=== PATIENT | female | born 1960 | race Caucasian/White ===

== ENCOUNTER 2018-11-22 04:39 | Emergency (ER) | payer BC ==
--- NOTE | 2018-11-22 04:51 | ER Report ---
History and Physical Time Seen By MD: 04:47 (NAEEM CASTANEDA MD) Time Seen By MD: 07:00 (AMBREEN LIU DO) HPI/ROS CHIEF COMPLAINT: fall, head injury, bruised hand HISTORY OF PRESENT ILLNESS: This is a 58 year old female. She was getting up this morning to go to the bathroom. [place] nauseated and dizzy. Fell and hit head, right forehead over the eyebrow. Lost consciousness. Uncertain if loss of consciousness was first or due to impact. Awoke after unknown time, but based on small amount of blood on floor, was likely brief. Sat on the toilet and called for help. Pain over area of laceration and pain in right hand with bruising. Normal sensation and can move it. No neck pain. No headache other than over the lacerated area. Very anxious and upset about the event and difficult time talking about it. No vision changes. No chest pain at this time or palpitations. No shortness of breath. (NAEEM CASTANEDA MD) HPI/ROS Please see Dr. Castaneda note (AMBREEN LIU DO) Allergies: Coded Allergies: Sulfa (Sulfonamide Antibiotics) (Verified Allergy, Severe, HIVES, 04/24/15) sulfamethoxazole (Verified Allergy, Severe, SWELLING OF THROAT, HIVES, 04/24/15) trimethoprim (Verified Allergy, Severe, SWELLING OF THROAT, HIVES, 04/24/15) Home Meds Active Scripts Nitrofurantoin Macrocrystal (NITROFURANTOIN) 100 Mg Capsule, 100 MG PO BID for 5 Days, #10 CAPSULE Prov:AMBREEN LIU DO 11/22/18 Reviewed Nurses Notes: Yes (NAEEM CASTANEDA MD) Hx Smoking: Yes Smoking Status: Former Smoker Hx Substance Use Disorder: No (NAEEM CASTANEDA MD) Constitutional Vital Sign - Last 24 Hours 11/22/18 11/22/18 11/22/18 04:45 06:00 08:02 Temp 98.0 Pulse 90 78 76 Resp 16 16 B/P (MAP) 91/55 108/77 (87) Pulse Ox 93 93 O2 Delivery Room Air Room Air (AMBREEN LIU DO) Physical Exam General Appearance: The patient is alert. Very anxious and having acute distress. Non-toxic in appearance. Eyes: Pupils are equal, round. Reactive to light. No pallor, injection or icterus. Extraocular movements are intact. Brief extinguishing horizontal normal nystagmus. ENT: Mucous membranes are moist. Normal oral mucosa. Posterior oropharynx is normal. Neck: Supple and non tender. Respiratory: Lungs are clear to auscultation. Cardiovascular: Regular rate and rhythm. No murmurs, gallops or rubs. Normal capillary refill. Gastrointestinal: Abdomen is soft and non tender. Nondistended. Normal active bowel sounds. No CVA tenderness. Neurological: Alert and oriented x3. Cranial nerves II through XII show no acute deficits on my exam. No focal neurologic deficits in the extremities. Skin: Warm and dry. No rashes. Bruising on right hand over dorsal surface over the 2-5 metacarpals. Laceration, stellate, above right eyebrow, deep. Musculoskeletal: Extremities are nontender other than right hand. No tenderness in palpation of the cervical, thoracic spine. DIFFERENTIAL DIAGNOSIS: After history and physical exam, differential diagnosis was considered for syncope including but not limited to vasovagal syncope, arrhythmia, dehydration, and blood loss. Laceration on the right forehead over the eyebrow that needs to be repaired. Also injury to the right hand which will need imaging (NAEEM CASTANEDA MD) Physical Exam Please see Dr. Castaneda note (AMBREEN LIU DO) Medical Decision Making Data Points Result Diagram: 11/22/18 0544 11/22/18 0544 Laboratory Hematology Test 11/22/18 05:44 White Blood Count 14.0 k/uL (4.5-11.0) H Red Blood Count 4.24 M/uL (4.17-5.56) Hemoglobin 14.1 g/dL (12.0-16.0) Hematocrit 41.3 % (34.0-47.0) Mean Corpuscular Volume 97.3 fL (80.0-96.0) H Mean Corpuscular Hemoglobin 33.3 pg (26.0-33.0) H Mean Corpuscular Hemoglobin Concent 34.2 g/dL (32.0-36.0) Red Cell Distribution Width 13.0 % (11.5-14.5) Platelet Count 288 K/uL (150-450) Mean Platelet Volume 8.1 fL (7.2-11.1) Neutrophils (%) (Auto) 84.1 % (39.4-72.5) H Lymphocytes (%) (Auto) 6.0 % (17.6-49.6) L Monocytes (%) (Auto) 7.3 % (4.1-12.4) Eosinophils (%) (Auto) 2.4 % (0.4-6.7) Basophils (%) (Auto) 0.2 % (0.3-1.4) L Nucleated RBC Relative Count (auto) 0.0 /100WBC Neutrophils # (Auto) 11.8 K/uL (2.0-7.4) H Lymphocytes # (Auto) 0.8 K/uL (1.3-3.6) L Monocytes # (Auto) 1.0 K/uL (0.3-1.0) Eosinophils # (Auto) 0.3 K/uL (0.0-0.5) Basophils # (Auto) 0.0 K/uL (0.0-0.1) Nucleated RBC Absolute Count (auto) 0.00 K/uL Chemistry Test 11/22/18 05:44 Sodium Level 137 mmol/L (137-145) Potassium Level 3.8 mmol/L (3.5-5.0) Chloride Level 104 mmol/L (98-107) Carbon Dioxide Level 26 mmol/L (22-31) Blood Urea Nitrogen 18 mg/dl (7-18) Creatinine 0.80 mg/dl (0.52-1.04) Glomerular Filtration Rate Calc > 60.0 Random Glucose 121 mg/dl (75-110) Calcium Level 8.7 mg/dl (8.4-10.2) Total Bilirubin 0.8 mg/dl (0.2-1.3) Aspartate Amino Transf (AST/SGOT) 64 U/L (0-35) Alanine Aminotransferase (ALT/SGPT) 60 U/L (0-56) Alkaline Phosphatase 58 U/L (0-126) Troponin I < 0.012 ng/ml Total Protein 6.4 g/dl (6.3-8.2) Albumin 3.7 g/dl (3.5-5.0) Coagulation Test 11/22/18 05:44 Prothrombin Time 12.4 seconds (12.0-14.4) Prothromb Time International Ratio 0.93 Activated Partial Thromboplast Time 30 seconds (23-35) Urinalysis Test 11/22/18 00:00 Urine Color Yellow Urine Clarity Clear Urine pH 7.0 pH (4.8-9.5) Urine Specific [place] 1.017 Urine Protein Negative mg/dL (NEGATIVE) Urine Glucose (UA) Negative mg/dL (NEGATIVE) Urine Ketones Negative mg/dL (NEGATIVE) Urine Blood Negative (NEGATIVE) Urine Nitrite Negative (NEGATIVE) Urine Bilirubin Negative (NEGATIVE) Urine Urobilinogen Negative mg/dL (0.2-1.9) Urine Leukocyte Esterase Trace (NEGATIVE) Urine RBC 2 /HPF (0-2/HPF) Urine WBC 7 /HPF (0-5/HPF) Urine Squamous Epithelial Cells Few /LPF (</=FEW) Urine Bacteria Negative /HPF (NONE-FEW) Urine Hyaline Casts Few /LPF (NONE-FEW) Urine Mucus None /HPF (NONE-FEW) (AMBREEN LIU DO) EKG/Imaging EKG Interpretation 12 lead EKG: Rhythm: Normal sinus rhythm, rate 67 [place]: normal QRS: Low-voltage ST segments: No ST elevation or depression or signs of ischemia noted (NAEEM CASTANEDA MD) ED Course/Re-evaluation Clinical Indication for ER IV: Hydration, IV Access Re-evaluation Procedure: Laceration Repair Verbal consent from patient after discussing repair options, risks and benefits. Wound cleaned extensively with Hibiclens and saline. Anesthesia: Local 1% with lidocaine. Location: Right forehead over the eyebrow. Length: Approximately total 5 cm in length. Character: Stellate and deep. Wound repair: 5 internal 4-0 Vicryl sutures followed by 7 interrupted 4-0 Ethilon sutures. The wound repair was intermediate and performed by myself. Wound care instructions discussed. Sutures need to be removed in 7 days. Tetanus up-to-date Cephalexin 500mg four times a day for 5 days. (NAEEM CASTANEDA MD) ED Course I assumed patient care from Dr. Castaneda at shift change. Imaging resulted was unremarkable. Patient was placed on antimicrobial therapy. Return precautions provided. PCP follow-up recommended. Decision to Disposition Date: Nov 22, 2018 Decision to Disposition Time: 07:44 (AMBREEN LIU DO) Depart Departure Latest Vital Signs Vital Signs Date Time Temp Pulse Resp B/P (MAP) Pulse Ox O2 Delivery O2 Flow Rate FiO2 11/22/18 08:02 76 16 108/77 (87) 93 Room Air 11/22/18 04:45 98.0 (AMBREEN LIU DO) Impression: Primary Impression: Fall Condition: Improved Disposition: HOME OR SELF-CARE Referrals: MARJORIE CEJA PA-C (PCP) New Scripts Nitrofurantoin Macrocrystal (NITROFURANTOIN) 100 Mg Capsule 100 MG PO BID for 5 Days, #10 CAPSULE Prov: AMBREEN LIU DO 11/22/18 Patient Instructions: Fall Prevention (ED), Urinary Tract Infection in Women (DC) Additional Instructions: Please drink plenty of water. Please take Macrobid 1 tablet twice daily for 5 days. Please return promptly if she develop worsening pain, fevers, dizziness, headaches. Please follow-up with your family care provider in the next 3-5 days for repeat evaluation care. NAEEM CASTANEDA MD Nov 22, 2018 04:51 AMBREEN LIU DO Nov 22, 2018 07:50
[2018-11-22 05:57] LABS: PLATELET COUNT, AUTOMATED 288 K/uL (150-450)
[2018-11-22 06:05] LABS: INR 0.93
--- NOTE | 2018-11-22 06:32 | EKG ---
FACILITY: [facility] - [place] PATIENT NAME: MICHELLE BRAND : [id number] MR: [id number] V: [id number] EXAM DATE: ORDERING PHYSICIAN: NAEEM BALL TECHNOLOGIST: KIMMY Haji Reason : Blood Pressure : / mmHG Vent. Rate : 067 BPM Atrial Rate : 067 BPM P-R Int : 152 ms QRS Dur : 074 ms QT Int : 412 ms P-R-T Axes : 062 035 066 degrees QTc Int : 435 ms Sinus rhythm Possible left atrial enlargement No acute appearing findings No previous ECGs available Confirmed by SHANIQUE MARTINEZ ([id number]) on 11/22/2018 6:32:42 AM Referred By: Confirmed By:SHANIQUE MARTINEZ
--- NOTE | 2018-11-22 07:11 | RADIOLOGY IMAGING REPORT ---
FACILITY: [facility] [place] PATIENT NAME: Lauren Boyd : 1960 MR: [id number] V: [id number] EXAM DATE: ORDERING PHYSICIAN: NAEEM BALL TECHNOLOGIST: Location: [facility] [place] Patient: Lauren Boyd : 1960 Visit/Account:[id number] Date of Sevice: 11/22/2018 AP CHEST 11/22/2018 5:36 AM. INDICATION: Syncope, fall. COMPARISON: None. FINDINGS: Lungs are well-expanded. There is no suspicious consolidation. No pleural effusion or pneumothorax. H eart size is normal. No displaced fracture. IMPRESSION: No acute abnormality. Report Dictated By: Lars Wood MD at 11/22/2018 7:02 AM Report E-Signed By: Lars Wood MD at 11/22/2018 7:04 AM WSN:[id number]
--- NOTE | 2018-11-22 07:12 | RADIOLOGY IMAGING REPORT ---
FACILITY: [facility] [place] PATIENT NAME: Lauren Boyd : 1960 MR: [id number] V: [id number] EXAM DATE: [id number] ORDERING PHYSICIAN: NAEEM BALL TECHNOLOGIST: Location: [facility] - [place] Patient: Lauren Boyd : 1960 Visit/Account:[id number] Date of Sevice: 11/22/2018 INDICATION: syncope, fall EXAM DATE: 11/22/2018 5:36 AM COMPARISON: None. FINDINGS: 3 views right hand. Mineralization is normal. No acute alignment abnormality or fracture. Soft tissue s are unremarkable. IMPRESSION: Normal right hand. At I Report Dictated By: Lars Wood MD at 11/22/2018 7:04 AM Report E-Signed By: Lars Wood MD at 11/22/2018 7:05 AM WSN:[id number]
--- NOTE | 2018-11-22 07:31 | RADIOLOGY IMAGING REPORT ---
FACILITY: [facility] PATIENT NAME: Lauren Boyd : 1960 MR: [id number] V: [id number] EXAM DATE: [id number] ORDERING PHYSICIAN: NAEEM BALL TECHNOLOGIST: Location: [facility] Patient: Lauren Boyd : 1960 Visit/Account:[id number] Date of Sevice: 11/22/2018 EXAMINATION: CT Head without intravenous contrast CT Cervical spine without intravenous contrast HISTORY: Syncope. Trauma. TECHNIQUE: Head: Axial images were obtained from the skull base to the vertex without intravenous contrast. Sa gittal and coronal reformatted images are also submitted. Cervical spine: Axial images were obtained from the skull base through the upper thoracic spine with out IV contrast administration. Coronal and sagittal reformatted images were obtained from the axial source data. One of the following dose optimization techniques was utilized in the performance of this exam: Autom ated exposure control; adjustment of the mA and/or kV according to the patient's size; or use of an i terative reconstruction technique. Specific details can be referenced in the facility's radiology C T exam operational policy. COMPARISON: None available. FINDINGS: HEAD: Brain volume: Normal. Ventricles: Negative. Acute ischemic changes: None. Hemorrhage: None. Masses / edema: None. Cruz-white: Negative. White matter: Negative. Vessels: Negative. Extra-axial: Negative. Calvarium / skull base: Right frontal scalp laceration with no radiopaque foreign body or fracture. Visualized sinuses / orbits: Negative. CERVICAL SPINE: Alignment: Normal. Cranio-cervical junction: Mild degenerative changes in the atlantodental joint. Otherwise negative. Vertebral bodies: Negative. Posterior elements: Mild multilevel facet hypertrophy. Hardware: None. Disc Spaces: Mild multilevel degenerative disc disease. Soft tissues: No prevertebral soft tissue swelling. Visualized upper chest: Negative. IMPRESSION: 1. Right frontal scalp laceration with no radiopaque foreign body or skull fracture. 2. No acute intracranial abnormality. 3. No acute cervical spine fracture. 4. Mild multilevel degenerative disc disease and facet hypertrophy. Report Dictated By: Arnold Diaz MD at 11/22/2018 7:14 AM Report E-Signed By: Arnold Diaz MD at 11/22/2018 7:23 AM WSN:[id number]
--- NOTE | 2018-11-22 07:31 | RADIOLOGY IMAGING REPORT ---
FACILITY: [facility] - [place] PATIENT NAME: Lauren Boyd : 1960 MR: [id number] V: [id number] EXAM DATE: [id number] ORDERING PHYSICIAN: NAEEM BALL TECHNOLOGIST: Location: [facility] [place] Patient: Lauren Boyd : 1960 Visit/Account:[id number] Date of Sevice: 11/22/2018 EXAMINATION: CT Head without intravenous contrast CT Cervical spine without intravenous contrast HISTORY: Syncope. Trauma. TECHNIQUE: Head: Axial images were obtained from the skull base to the vertex without intravenous contrast. Sa gittal and coronal reformatted images are also submitted. Cervical spine: Axial images were obtained from the skull base through the upper thoracic spine with out IV contrast administration. Coronal and sagittal reformatted images were obtained from the axial source data. One of the following dose optimization techniques was utilized in the performance of this exam: Autom ated exposure control; adjustment of the mA and/or kV according to the patient's size; or use of an i terative reconstruction technique. Specific details can be referenced in the facility's radiology C T exam operational policy. COMPARISON: None available. FINDINGS: HEAD: Brain volume: Normal. Ventricles: Negative. Acute ischemic changes: None. Hemorrhage: None. Masses / edema: None. Cruz-white: Negative. White matter: Negative. Vessels: Negative. Extra-axial: Negative. Calvarium / skull base: Right frontal scalp laceration with no radiopaque foreign body or fracture. Visualized sinuses / orbits: Negative. CERVICAL SPINE: Alignment: Normal. Cranio-cervical junction: Mild degenerative changes in the atlantodental joint. Otherwise negative. Vertebral bodies: Negative. Posterior elements: Mild multilevel facet hypertrophy. Hardware: None. Disc Spaces: Mild multilevel degenerative disc disease. Soft tissues: No prevertebral soft tissue swelling. Visualized upper chest: Negative. IMPRESSION: 1. Right frontal scalp laceration with no radiopaque foreign body or skull fracture. 2. No acute intracranial abnormality. 3. No acute cervical spine fracture. 4. Mild multilevel degenerative disc disease and facet hypertrophy. Report Dictated By: Arnold Diaz MD at 11/22/2018 7:14 AM Report E-Signed By: Arnold Diaz MD at 11/22/2018 7:23 AM WSN:[id number]
[2018-11-22] MEDS ORDERED: NITR-1 PO (07:50)
[2018-11-22] MEDS ORDERED: ACETAMINOPHEN 500 MG TAB PO ONE (07:55)
[2018-11-22 08:02] VITALS: BP 108/77
== END 2018-11-22 08:19 | disposition home or self-care (01) ==
LOC: ER 04:53
DX: S01.81XA Laceration without foreign body of other part of head, initial encounter (principal); F41.9 Anxiety disorder, unspecified; S60.221A Contusion of right hand, initial encounter
CPT/HCPCS: 70450; 71045; 72125; 81001; 82040; 82247; 82310; 82374; 82435; 82565; 82947; 84075; 84132; 84155; 84295; 84450; 84460; 84484; 84520; 85025; 85610; 85730; 87088; 93005; 99284

== ENCOUNTER → 2018-11-23 | Outpatient (CLI) | payer BC ==
[~2018-11-23] MED LIST: NITR-1 PO
--- NOTE | 2018-11-23 14:47 | RADIOLOGY IMAGING REPORT ---
FACILITY: [facility] - [place] PATIENT NAME: Lauren Boyd : 1960 MR: [id number] V: [id number] EXAM DATE: ORDERING PHYSICIAN: NADEEM MOSS TECHNOLOGIST: [place] [facility] [place] : 1960 Visit/Account:[id number] Date of Sevice: 11/23/2018 Exam type: US VENOGRAM EXTREMITY, BILATERAL History: Swelling of both legs post airplane trip Comparison: None. Findings: Lower extremity veins were imaged bilaterally including the common femoral vein is superficial femora l veins popliteal veins posterior tibial veins peroneal veins and anterior tibial veins revealing no evidence of intimal thrombi. The veins were compressible and demonstrated augmentation IMPRESSION: 1. No sonographic evidence DVT involving the lower extremity veins bilaterally Results were called to NADEEM MOSS at 11/23/2018 2:14 PM. Report Dictated By: Isamar Ruiz MD at 11/23/2018 2:11 PM Report E-Signed By: Isamar Ruiz MD at 11/23/2018 2:38 PM WSN:[email or web address]
== END ==
LOC: US 12:37
PROVIDERS: ATTEND Nurse Practitioner Family
DX: R60.0 Localized edema (principal); R22.43 Localized swelling, mass and lump, lower limb, bilateral; M79.605 Pain in left leg; M79.604 Pain in right leg
CPT/HCPCS: 93970